=== PATIENT | female | born 1950 | race Caucasian/White ===

== ENCOUNTER 2018-11-03 17:16 | Emergency (ER) | payer OTHER ==
[~2018-11-03] VITALS: Ht 149.9 cm; Wt 56.7 kg
[2018-11-03 17:23] VITALS: Ht 149.9 cm; Wt 56.7 kg
[2018-11-03 18:46] VITALS: BP 104/63
== END 2018-11-03 18:46 | disposition home or self-care (01) ==
LOC: ED 17:16
DX: M26.603 Bilateral temporomandibular joint disorder, unspecified (principal); B37.0 Candidal stomatitis; Z85.3 Personal history of malignant neoplasm of breast
CPT/HCPCS: J1885

== ENCOUNTER 2019-03-10 16:00 | Emergency (ER) | payer OTHER ==
[~2019-03-10] VITALS: Ht 147.3 cm; Wt 56.2 kg
[2019-03-10 16:06] VITALS: Ht 147.3 cm; Wt 56.2 kg
[2019-03-10 18:16] VITALS: BP 123/72
== END 2019-03-10 18:16 | disposition home or self-care (01) ==
LOC: ED 16:00
DX: S80.11XA Contusion of right lower leg, initial encounter (principal); S90.01XA Contusion of right ankle, initial encounter; Z85.3 Personal history of malignant neoplasm of breast; W23.0XXA Caught, crushed, jammed, or pinched between moving objects, initial encounter; Y93.89 Activity, other specified; Y92.89 Other specified places as the place of occurrence of the external cause; Y99.8 Other external cause status